=== PATIENT | female | born 1980 | race Caucasian/White ===

== ENCOUNTER 2021-02-22 09:40 | Day surgery (SDC) | payer OTHER ==
[~2021-02-22] VITALS: Ht 162.6 cm; Wt 131.5 kg
[2021-02-22] MEDS ORDERED: fentaNYL citrate 0.05 MG/ML VIAL ONE (13:29)
[2021-02-22] MEDS ORDERED: LIDOCAINE 2% 100 MG/5 ML UJET TP ONE ×2 (13:29→13:50)
[2021-02-22] MEDS ORDERED: KETOROLAC 60 MG/2 ML VIAL IM ONE (13:36)
[2021-02-22] MEDS ORDERED: KETOROLAC 30 MG/ML VIAL IVP ONE (13:50)
[2021-02-22] MEDS ORDERED: MIDAZOLAM 5 MG/5 ML VIAL ONE (14:01)
[2021-02-22] MEDS ORDERED: MIDAZOLAM 2 MG/2 ML VIAL IVP ONE (14:10)
== END 2021-02-22 14:58 | disposition home or self-care (01) ==
LOC: MDS 09:40 → MMU 10:29 → MDS 14:58
PROVIDERS: ATTEND Internal Medicine Gastroenterology
DX: Z12.11 Encounter for screening for malignant neoplasm of colon (principal); K57.30 Diverticulosis of large intestine without perforation or abscess without bleeding; Z80.0 Family history of malignant neoplasm of digestive organs; Z79.899 Other long term (current) drug therapy
CPT/HCPCS: 45378; 81025; J1885; J2250; J3010